=== PATIENT | male | born 1975 | race Caucasian/White ===

== ENCOUNTER 2022-04-16 11:55 | Emergency (ER) | payer SELFPAY ==
[2022-04-16] MEDS ORDERED: HYDROmorphone 1 MG/ML Syringe IVPUSH STA (12:40)
[2022-04-16] MEDS ORDERED: Ondansetron 4 MG/2 ML SDV IVPUSH ONE (12:40)
[2022-04-16] MEDS ORDERED: Sodium Chloride 0.9% 1,000 ML IV SCH (12:45)
[2022-04-16 13:46] LABS: ESTIMATED GFR 108 mL/min (>60)
[2022-04-16] MEDS ORDERED: Sodium Chloride 0.9% 10 ML Syringe FLUSH ONE (13:57)
[2022-04-16] MEDS ORDERED: Iopamidol 755 Mg/ML 100 ML Bottle IVPUSH ONE (13:57)
== END 2022-04-16 16:00 | disposition home or self-care (01) ==
LOC: JD.ED 11:55
DX: S30.1XXA Contusion of abdominal wall, initial encounter (principal); Z72.0 Tobacco use; Z88.2 Allergy status to sulfonamides; W01.0XXA Fall on same level from slipping, tripping and stumbling without subsequent striking against object, initial encounter
CPT/HCPCS: 36415; 74176; 74177; 80053; 81003; 83690; 85025; 86140; 96361; 96374; 96375; 99284; J1170; J2405; J3490; J7030; Q9967

== ENCOUNTER 2022-04-23 13:49 | Emergency (ER) | payer SELFPAY ==
[2022-04-23] MEDS ORDERED: LORazepam 2 MG/ML SDV IM ONE (14:31)
[2022-04-23] MEDS ORDERED: Acetaminophen/HYDROcodone 325-5 MG Tab PO ONE (15:33)
== END 2022-04-23 17:01 | disposition home or self-care (01) ==
LOC: JD.ED 13:49
DX: F41.0 Panic disorder [episodic paroxysmal anxiety] (principal); F32.A Depression, unspecified; F17.210 Nicotine dependence, cigarettes, uncomplicated; Z79.899 Other long term (current) drug therapy; Z88.2 Allergy status to sulfonamides
CPT/HCPCS: 96372; 99283; A9270; J2060

== ENCOUNTER 2022-05-01 16:26 | Emergency (ER) | payer SELFPAY ==
[2022-05-01] MEDS ORDERED: Amoxicillin/Clavulanate K 875-125 MG Tab PO ONE (17:44)
[2022-05-01] MEDS ORDERED: Acetaminophen/HYDROcodone 325-5 MG Tab PO ONE (17:44)
== END 2022-05-01 18:21 | disposition home or self-care (01) ==
LOC: JD.ED 16:26
DX: K08.89 Other specified disorders of teeth and supporting structures (principal); Z72.0 Tobacco use; Z88.2 Allergy status to sulfonamides
CPT/HCPCS: 99282; A9270

== ENCOUNTER 2022-07-03 18:49 | Emergency (ER) | payer SELFPAY ==
[2022-07-03] MEDS ORDERED: HYDROmorphone 1 MG/ML Syringe IM ONE (19:18)
== END 2022-07-03 20:05 | disposition home or self-care (01) ==
LOC: JD.ED 18:49
DX: K04.7 Periapical abscess without sinus (principal); Z72.0 Tobacco use; Z88.2 Allergy status to sulfonamides
CPT/HCPCS: 96372; 99282; J1170; 10060

== ENCOUNTER 2022-08-22 10:25 | Emergency (ER) | payer SELFPAY ==
[2022-08-22] MEDS ORDERED: Sodium Chloride 0.9% 10 ML Syringe FLUSH PRN (10:35)
[2022-08-22] MEDS ORDERED: Sodium Chloride 0.9% 1,000 ML IV SCH (10:45)
[2022-08-22] MEDS ORDERED: HYDROmorphone 0.5 MG/0.5 ML Syringe IVPUSH ONE (11:30)
[2022-08-22] MEDS ORDERED: Ondansetron 4 MG/2 ML SDV IVPUSH ONE (11:30)
[2022-08-22] MEDS ORDERED: Ondansetron 4 MG Tab.DIS PO ONE (13:00)
== END 2022-08-22 13:46 | disposition home or self-care (01) ==
LOC: JD.ED 10:25
DX: R10.30 Lower abdominal pain, unspecified (principal); F17.210 Nicotine dependence, cigarettes, uncomplicated; Z88.2 Allergy status to sulfonamides
CPT/HCPCS: 36415; 74018; 80053; 81001; 83690; 83735; 85025; 86140; 96361; 96374; 96375; 99284; A9270; J1170; J2405; J3490; J7030

== ENCOUNTER 2022-10-17 17:26 | Emergency (ER) | payer SELFPAY ==
[2022-10-17] MEDS ORDERED: Ketorolac 60 MG/2 ML SDV IM ONE (17:48)
== END 2022-10-17 18:03 | disposition home or self-care (01) ==
LOC: JD.ED 17:26
DX: K08.89 Other specified disorders of teeth and supporting structures (principal); Z88.2 Allergy status to sulfonamides
CPT/HCPCS: 99282

== ENCOUNTER 2022-11-25 22:54 | Emergency (ER) | payer SELFPAY ==
[2022-11-25] MEDS ORDERED: Ketorolac 60 MG/2 ML SDV IM ONE (23:37)
[2022-11-25] MEDS ORDERED: cefTRIAXone 1 GM Vial IM ONE (23:37)
[2022-11-25] MEDS ORDERED: Acetaminophen/HYDROcodone 325-10 MG Tab PO ONE (23:38)
[2022-11-26] MEDS ORDERED: Lidocaine 1% 10 ML MDV INJECT ONE (00:01)
== END 2022-11-26 00:15 | disposition home or self-care (01) ==
LOC: JD.ED 22:54
DX: K04.7 Periapical abscess without sinus (principal); Z88.2 Allergy status to sulfonamides
CPT/HCPCS: 96372; 99282; A9270; J1885; J3490

== ENCOUNTER 2023-01-14 12:05 | Emergency (ER) | payer MEDICAID ==
[2023-01-14] MEDS ORDERED: Ketorolac 60 MG/2 ML SDV IM ONE (12:49)
[2023-01-14] MEDS ORDERED: HYDROmorphone 1 MG/ML Syringe IM ONE (12:49)
[2023-01-14] MEDS ORDERED: Diazepam 2 MG Tab PO ONE (12:50)
== END 2023-01-14 14:12 | disposition home or self-care (01) ==
LOC: JD.ED 12:05
DX: M54.12 Radiculopathy, cervical region (principal); F17.210 Nicotine dependence, cigarettes, uncomplicated; Z88.2 Allergy status to sulfonamides; Z79.899 Other long term (current) drug therapy
CPT/HCPCS: 96372; 99283; A9270; J1170; J1885

== ENCOUNTER 2023-02-18 13:40 | Emergency (ER) | payer MEDICAID ==
[2023-02-18] MEDS ORDERED: HYDROmorphone 1 MG/ML Syringe IM ONE (14:48)
== END 2023-02-18 15:13 | disposition home or self-care (01) ==
LOC: JD.ED 13:40
DX: K02.9 Dental caries, unspecified (principal); Z88.2 Allergy status to sulfonamides
CPT/HCPCS: 96372; 99282